=== PATIENT | female | born 1995 | race Caucasian/White ===

== ENCOUNTER 2017-04-10 13:47 | Emergency (ER) | payer BC ==
[2017-04-10 14:12] VITALS: BP 125/80
--- NOTE | 2017-04-10 14:43 | UC ---
Hand/Wrist HPI - HPI Summary HPI Summary: Pt c/o right 5th finger pain and tenderness s/p "jamming" her finger today playing volleyball. 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 - History Of Current Complaint Chief Complaint: UCUpperExtremity Stated Complaint: RT PINKY INJURY Time Seen by Provider: 04/10/17 14:24 Hx Obtained From: Patient Hx Last Menstrual Period: 03/18/17 ?: No Onset/Duration: Sudden Onset Severity Initially: Mild Severity Currently: Mild Character Of Pain: Dull, Aching Aggravating Factor(s): Movement Alleviating Factor(s): Rest Associated Signs And Symptoms: Positive: Swelling - Allergies/Home Medications Allergies/Adverse Reactions: Allergies Allergy/AdvReac Type Severity Reaction Status Date / Time No Known Allergies Allergy Verified 04/10/17 14:12 Home Medications: Home Medications NK [No Home Medications Reported] 04/10/17 [History Confirmed 04/10/17] PMH/Surg Hx/FS Hx/Imm Hx Previously Healthy: Yes - Surgical History Surgical History: None - Family History Known Family History: Positive: Cardiac Disease - Social History Occupation: Student Lives: Dormitory/Roommates - [employer] Alcohol Use: Occasionally Substance Use Type: None Smoking Status (MU): Never Smoked Tobacco Have You Smoked in the Last Year: No Review of Systems Constitutional: Negative Skin: Negative Eyes: Negative ENT: Negative Respiratory: Negative Cardiovascular: Negative Gastrointestinal: Negative Genitourinary: Negative Motor: Decreased ROM - right 5th finger Neurovascular: Negative Musculoskeletal: Decreased ROM - secondary to pain, right 5th finger Neurological: Negative Psychological: Negative Is Patient Immunocompromised?: No All Other Systems Reviewed And Are Negative: Yes Physical Exam Triage Information Reviewed: Yes Appearance: Well-Appearing Vital Signs: Initial Vital Signs Temp 98 F 04/10/17 14:09 Pulse 89 04/10/17 14:09 Resp 14 04/10/17 14:09 BP 125/80 04/10/17 14:09 Pulse Ox 100 04/10/17 14:09 Vital Signs Reviewed: Yes Eye Exam: Normal ENT Exam: Normal Neck exam: Normal Respiratory Exam: Normal Respiratory: Positive: No respiratory distress Musculoskeletal Exam: Other Musculoskeletal: Positive: Strength Limited @ - right 5th finger, ROM Limited @ - right 5th finger Neurological Exam: Normal Psychological Exam: Normal Skin Exam: Normal Hand/Wrist Course/Dx - Differential Dx/Diagnosis Differential Diagnosis/HQI/PQRI: Contusion, Fracture Provider Diagnoses: right 5th finger contusion Discharge - Discharge Plan Condition: Stable Disposition: HOME Patient Education Materials: Leilani Hinson (ED)
--- NOTE | 2017-04-10 14:46 | RAD ---
HISTORY: Right fifth digit trauma COMPARISONS: None VIEWS: 3, Frontal, lateral, and oblique views of the fifth digit of the right hand FINDINGS: BONE DENSITY: Normal. BONES: There is no displaced fracture. JOINTS: There is no arthropathy. ALIGNMENT: There is no dislocation. SOFT TISSUES: There is soft tissue swelling at the PIP joint OTHER FINDINGS: None. IMPRESSION: SOFT TISSUE SWELLING. NO ACUTE OSSEOUS INJURY. IF SYMPTOMS PERSIST, RECOMMEND REPEAT IMAGING.
== END 2017-04-10 15:10 | disposition home or self-care (01) ==
LOC: UCCORT 13:47
DX: S60.051A Contusion of right little finger without damage to nail, initial encounter (principal); W22.8XXA Striking against or struck by other objects, initial encounter; Y93.68 Activity, volleyball (beach) (court); Y92.89 Other specified places as the place of occurrence of the external cause
CPT/HCPCS: 73140; 99201; G0463

== ENCOUNTER 2017-09-13 10:10 | Emergency (ER) | payer BC ==
[2017-09-13 11:15] VITALS: BP 123/77
--- NOTE | 2017-09-13 11:28 | UC ---
Upper Extremity HPI - HPI Summary HPI Summary: 22 year old female with wrist pain . RIGHT HAND AND WRIST INJURY. YESTERDAY WHILE PLAYING VOLLEY BALL PT STOPPED THE BALL AND HYPEREXTENED HER WRIST. STATES WRIST HAS BEEN PAINFUL AND WEAK THIS SEASON. ALSO DISLOCATED HER RIGHT FIFTH FINGER LAST APRIL- JOINT REMAINS SWOLLEN . [ End ] hurt in practice. no trauma otherwise. given wrist splint and advised by marine animal trainer to come here. has seen [facility] in the past as she is from [facility] - History of Current Complaint Chief Complaint: UCUpperExtremity Stated Complaint: HAND/WRIST COMPLAINT Time Seen by Provider: 09/13/17 11:21 Hx Obtained From: Patient Hx Last Menstrual Period: 09/10/17 ?: No Onset/Duration: Sudden Onset Severity Initially: Moderate Severity Currently: Moderate Pain Intensity: 8 Associated Signs And Symptoms: Positive: Swelling - Allergies/Home Medications Allergies/Adverse Reactions: Allergies Allergy/AdvReac Type Severity Reaction Status Date / Time enviromental Allergy Unknown Unknown Uncoded 09/13/17 11:07 Reaction Details Home Medications: Home Medications Naproxen Sodium [Midol Extended Relief] 220 mg PO PRN 09/13/17 [History] PMH/Surg Hx/FS Hx/Imm Hx Previously Healthy: Yes - Surgical History Surgical History: Yes Surgery Procedure, Year, and Place: TONILLECTOMY - Family History Known Family History: Positive: Cardiac Disease - Social History Occupation: Student Alcohol Use: Occasionally Substance Use Type: None Smoking Status (MU): Never Smoked Tobacco Have You Smoked in the Last Year: No Review of Systems Musculoskeletal: Arthralgia, Decreased ROM Is Patient Immunocompromised?: No All Other Systems Reviewed And Are Negative: Yes Physical Exam Triage Information Reviewed: Yes Appearance: Well-Appearing, No Pain Distress, Well-Nourished Vital Signs: Initial Vital Signs Temp 97.9 F 09/13/17 11:08 Pulse 70 09/13/17 11:08 Resp 16 09/13/17 11:08 BP 123/77 09/13/17 11:08 Pulse Ox 100 09/13/17 11:08 Vital Signs Reviewed: Yes Eyes: Positive: Conjunctiva Clear ENT: Positive: Normal ENT inspection Respiratory: Positive: No respiratory distress Musculoskeletal: Positive: Strength Intact, ROM Limited @ - right wrist with dorsal tenderness to palpation. no anatomic snuff box fingers with FROM and normal sensation. normal elbow and shoulder exam. skin normal color. no MCP tenderness Upper Extremity Course/Dx - Course Course Of Treatment: no fx on xray seen by me. she already has the wrist splint at home given by assistant athletic trainer. rest and f/u with [facility] or PCP. advised to consider for assistant athletic trainer to give PT exercises - Differential Dx/Diagnosis Provider Diagnoses: wrist sprain Discharge - Sign-Out/Discharge Documenting (check all that apply): Discharge - Discharge Plan Condition: Good Disposition: HOME Patient Education Materials: Wrist Sprain (ED) Forms: *Physical Education Release Referrals: No Primary Care Phys,NOPCP [Primary Care Provider] - If Needed (follow up with [facility] if needed if your pain persists . ) - Billing Disposition and Condition Condition: GOOD Disposition: HOME
--- NOTE | 2017-09-13 12:03 | RAD ---
INDICATION: Pain. Overuse COMPARISON: None TECHNIQUE: AP and lateral views were obtained. FINDINGS: There is no acute fracture or dislocation. There is soft tissue swelling over the dorsum the wrist. IMPRESSION: SOFT TISSUE SWELLING. NO ACUTE BONY CHANGE.
== END 2017-09-13 12:06 | disposition home or self-care (01) ==
LOC: UCCORT 10:10
DX: S63.501A Unspecified sprain of right wrist, initial encounter (principal); X50.0XXA Overexertion from strenuous movement or load, initial encounter; Y93.68 Activity, volleyball (beach) (court); Y92.9 Unspecified place or not applicable
CPT/HCPCS: 99211; G0463